=== PATIENT | female | born 1960 | race Caucasian/White ===

== ENCOUNTER 2021-07-19 01:20 | Day surgery (SDC) | payer OTHER, SELFPAY ==
[2021-07-17 08:47] VITALS: BMI 40.3
--- NOTE | 2021-07-17 09:23 | PC.NURSE ---
Report to the Outpatient Waiting Room, entrance under the green pavilion located off [facility], at time 0615 on date 07/19/21. OR Time: 0815. - You and your visitor will be asked a series of questions to screen for COVID 19 for your protection. - A mask is required within the hospital. One visitor will be allowed to accompany the patient into the hospital. Patients visitor will be instructed to remain with patient at all times or leave the building. We will allow the visitor to come back to the postoperative area when patient is ready. Preoperative COVID Testing Requirements: TO BRING COPY OF CARD No COVID Test needed if: (proof is required; if not received patient will have Rapid Test prior to entry) - Patient has received COVID Vaccine at least 14 days prior to procedure date or - Patient has positive COVID test result within last 90 days of surgery date. COVID Test needed if above criteria is not met Patients may have clear liquids (water, carbonated beverages, clear teas, apple juice) until 3 hours prior to surgery with a maximum of 20 ounces. - No food from midnight until time of surgery Take the following medications with a SIP of water the morning of surgery: LOPRESSOR, PAIN PILL (IF NEEDED) Medications to discontinue per physician: VITAMINS/SUPPLEMENTS Date to take last dose: 07/17/21 Please no make-up, nail pashto, hairspray, perfume, deodorant, or body powder the day of surgery. No jewelry (including any body piercings) or valuables the day of surgery, leave them at home. Please take a shower or bath the night before, or the morning of, surgery with an antibacterial soap. Wear comfortable, loose fitting clothing. - Jewelry must be removed prior to entering the operating room. Rings and piercings that are not removed may be cut off. - The hospital will not accept responsibility for valuables. - Please leave all valuables, including medications, at home the day of surgery. If you are going home after surgery, a licensed pile driver operator must drive you home. - NO public transportation without another adult. - We recommend that an adult stay with you for 24 hours following discharge. - We also recommend that you do not drive, make important decision, drink alcoholic beverages, or take any drugs that were not prescribed by your health care provider for at least 24 hours after your discharge time. Follow any additional instructions given to you from your surgeon. Telephone instructions given to ROSETTE WHALEN and asked if any additional questions and then verbalized understanding. Patient advised to call surgeon office or pre surgery nurse liaison [phone] if any additional questions.
--- NOTE | 2021-07-18 13:22 | P.PNAN_ITS ---
Anes - Initial Pre Proc Eval Procedure: Operation Date: 07/19/21 08:15 Proposed Procedures p Cystoscopy, Injection Bulking Agent Bulkamid - Fletcher Balderrama MD Date/Time: 07/18/21 13:22 Surgeon: Fletcher Balderrama MD Pre Op Diagnosis: intrinsic sphincter deficiency Patient Data Age: 61 Gender: F Height: 1.68 m Weight: 113.4 kg Allergies Allergy/AdvReac Type Severity Reaction Status Date / Time No Known Allergies Allergy Verified 07/19/21 06:28 Home Medications Medication Instructions Recorded Confirmed Type acetaminophen [Tylenol Arthritis] 1,300 mg PO DAILY 07/17/21 07/19/21 History atorvastatin [Lipitor] 40 mg PO HS 07/17/21 07/19/21 History celecoxib [Celebrex] 200 mg PO HS 07/17/21 07/19/21 History cranberry 500 mg PO DAILY 07/17/21 07/19/21 History diazepam [Valium] 10 mg PO HS PRN 07/17/21 07/19/21 History duloxetine [Cymbalta] 60 mg PO HS 07/17/21 07/19/21 History hydrocodone-acetaminophen [Vicodin] 1 tablet PO Q8H PRN 07/17/21 07/19/21 History metaxalone [Skelaxin] 800 mg PO HS 07/17/21 07/19/21 History metoprolol tartrate [Lopressor] 50 mg PO DAILY 07/17/21 07/19/21 History naproxen 500 mg PO HS 07/17/21 07/19/21 History omeprazole 20 mg PO HS 07/17/21 07/19/21 History Patient hx anesthesia problems: none Family hx anesthesia problems: none Results Review: All pre-operative results and documents have been reviewed as part of the pre-operative evaluation. [facility] Past Medical History Medical History (Updated 07/19/21 @ 06:47 by Kwame Alvarado DO) Anxiety Asthma Chronic, continuous use of opioids Vicodin for neck plate - rarely uses, only for breakthrough pain Depression GERD (gastroesophageal reflux disease) Hyperlipidemia Hypertension Surgical History Surgical History (Updated 07/18/21 @ 13:23 by Kwame Alvarado DO) History of Social History Social History Smoking packs per day: 1.5 Smoking cigarettes per day: 30.0 Years smoked: 48 Smoking pack-years: 72.00 Smoking status: Former smoker Tobacco type: cigarettes Smoking end date: 08/28/20 Alcohol intake: current Alcohol use details: 2/MONTH Substance use: current Substance use type: marijuana Living arrangements: with family Spiritual care concerns: No Anes - Eval Final PreProcedure Day of Procedure 07/18/21 13:22 Patient weight: morbidly obese Heart: regular rate and rhythm Lungs: clear to auscultation and normal air movement Airway: Mallampati scale class II Neurological: alert and oriented Last oral intake: >/= 8 hours ASA classification: III Emergent: no Anesthetic plan: proceed Anesthesia type and monitoring: general GIVS and standard monitoring Results Review: All pre-operative results and documents have been reviewed as part of the pre-operative evaluation. Informed Consent: The patient's anesthetic plan and its attendant risks and benefits were discussed with the patient/family/POA. Questions were solicited and answers provided to the satisfaction of the patient/family/POA.
[2021-07-19 06:13] VITALS: BP 136/76; PULSE 76; RESP 18; TEMP 36.9; O2SAT 94
[2021-07-19] MEDS: LACTATED RINGERS 1,000 ML 30 ML IV CONT (06:44)
--- NOTE | 2021-07-19 07:14 | PM.IMHP ---
H&P: HPI History of Present Illness Date/Time: 07/19/21 07:14 mixed incontinence. Here for treatment of ISD Chief Complaint: ISD Review of Systems Review of Systems: All systems reviewed & are unremarkable except as noted in HPI and below PMFSH Past Medical History Medical History Anxiety Asthma Chronic, continuous use of opioids Vicodin for neck plate - rarely uses, only for breakthrough pain Depression GERD (gastroesophageal reflux disease) Hyperlipidemia Hypertension Surgical History Surgical History History of Social History Social History Smoking packs per day: 1.5 Smoking cigarettes per day: 30.0 Years smoked: 48 Smoking pack-years: 72.00 Smoking status: Former smoker Tobacco type: cigarettes Smoking end date: 08/28/20 Alcohol intake: current Alcohol use details: 2/MONTH Substance use: current Substance use type: marijuana Living arrangements: with family Spiritual care concerns: No Meds Home Medications and Allergies Home Medications Medication Instructions Recorded Confirmed Type acetaminophen [Tylenol Arthritis] 1,300 mg PO DAILY 07/17/21 07/19/21 History atorvastatin [Lipitor] 40 mg PO HS 07/17/21 07/19/21 History celecoxib [Celebrex] 200 mg PO HS 07/17/21 07/19/21 History cranberry 500 mg PO DAILY 07/17/21 07/19/21 History diazepam [Valium] 10 mg PO HS PRN 07/17/21 07/19/21 History duloxetine [Cymbalta] 60 mg PO HS 07/17/21 07/19/21 History hydrocodone-acetaminophen [Vicodin] 1 tablet PO Q8H PRN 07/17/21 07/19/21 History metaxalone [Skelaxin] 800 mg PO HS 07/17/21 07/19/21 History metoprolol tartrate [Lopressor] 50 mg PO DAILY 07/17/21 07/19/21 History naproxen 500 mg PO HS 07/17/21 07/19/21 History omeprazole 20 mg PO HS 07/17/21 07/19/21 History Allergies Allergy/AdvReac Type Severity Reaction Status Date / Time No Known Allergies Allergy Verified 07/19/21 06:28 Vital Signs Vital Signs - 24 hr 07/19/21 06:13 Temperature 98.5 F Pulse Rate 76 Respiratory Rate 18 Blood Pressure 136/76 Pulse Oximetry 94 Exam Narrative: NAD Fixed urethra A+O x3 normal breathing Assessment and Plan Assessment and plan (1) Intrinsic sphincter deficiency (ISD): Code(s): N36.42 - Intrinsic sphincter deficiency (ISD) Status: Acute Assessment and Plan: cystoscopy, bulking agent
[2021-07-19 07:16] LABS: Add Urine Microscopic? YES; Appearance Urine Cloudy (Clear); Bacteria Urine Trace /hpf; Bilirubin Urine Negative (Negative); Blood Urine Negative (Negative); Color Urine Yellow (Yellow); Glucose Urine UA Negative (Negative); Ketones Urine Negative (Negative); Leukocyte Esterase Ur Negative LEU/UL (Negative); Mucus Urine Rare /lpf; Nitrate Urine Negative (Negative); Protein Urine 1+ mg/dL (Negative); RBC Urine 0-2 /hpf (0-2); Squamous Epithelial Cell Urine Many /hpf (Few); Urobilinogen Urine Negative mg/dL (<2.0); WBC Urine 0-3 /hpf
--- NOTE | 2021-07-19 07:16 | WPDHPUPDATE1 ---
History and Physical Update Update Date/Time: 07/19/21 07:16 History and Physical has been reviewed, including an updated exam of the patient. There are NO changes in the patient's condition. Risks, benefits, and alternatives have been discussed and questions answered. Patient agrees to proceed with procedure.
[2021-07-19] MEDS: ceFAZolin 2 GM/D5W 50 ML 2 GM/50 ML BAG IVPB (07:26)
[2021-07-19 07:32] LABS: Specific Grav Ur 1.033 (1.001-1.035)
[2021-07-19] MEDS: LIDOCAINE HCL 2% GEL UROJET 10 ML PKG MUCOUS MEM (07:38)
--- NOTE | 2021-07-19 07:44 | SUR.OPER ---
BULKAMID LOT [id number],EXP 2023-04-29 REF # [id number] TOTAL AMOUNT INJECTED PER DR BUCHANAN 1.3ML INJECTED
--- NOTE | 2021-07-19 07:47 | W.PM.PROC2 ---
Procedure Note - Detailed Date of Procedure 07/19/21 Pre-op Diagnosis intrinsic sphincter deficiency Post-op Diagnosis Same Procedure Performed Cystoscopy with suburethral injection of implant material [id number] Surgeon Fletcher Balderrama MD Anesthesia MAC Indications This is a patient with stress urinary incontinence due to intrinsic sphincter deficiency. They desires surgical correction. They understand the risk of bleeding, and infection, lack of efficacy, need for repeat procedures, obstructive voiding requiring catheterization. They agreed to proceed. She understands would not help her overactive bladder symptoms Findings Open urethra consistent with intrinsic sphincter deficiency Description of Procedure The patient was correctly identified and informed consent was obtained. They were brought to the operating room. They were given MAC anesthesia. They were placed in the dorsal lithotomy position. They were prepped and draped in a sterile fashion. A time-out performed. Uro jet lidocaine jelly was applied. Cystoscopy revealed an open urethra consistent with intrinsic sphincter deficiency. I injected the bulking agent into the urethra circumferentially 2 cm proximal to bladder neck.. I used 1-1/3 syringe total. There was good bulking effect. The bladder was left partially full. They were awakened and transferred to the PACU in stable condition. Implants Urethral bulking agent Estimated Blood Loss 1 Drains No Packing No Pathology None sent Complications No immediate complications Condition Stable Disposition PACU
[2021-07-19 07:54] VITALS: BP 115/89; PULSE 66; RESP 16; O2SAT 96
[2021-07-19 08:00] VITALS: BP 116/69; PULSE 67; RESP 18
[2021-07-19 08:30] VITALS: BP 108/82; PULSE 61; RESP 16
== END 2021-07-19 08:53 | disposition home or self-care (01) ==
PROVIDERS: PCP Preventive Medicine Obesity Medicine; Visit Provider Urology
PROC: 3E0K8GC Introduction of Other Therapeutic Substance into Genitourinary Tract, Via Natural or Artificial Opening Endoscopic (ICD-10-PCS; CPT 51715; principal; 2021-07-19 08:15)
DX: N36.42 Intrinsic sphincter deficiency (ISD) (principal); F41.9 Anxiety disorder, unspecified; J45.909 Unspecified asthma, uncomplicated; F41.8 Other specified anxiety disorders; K21.9 Gastro-esophageal reflux disease without esophagitis; E78.5 Hyperlipidemia, unspecified; I10 Essential (primary) hypertension; Z87.891 Personal history of nicotine dependence; F12.90 Cannabis use, unspecified, uncomplicated; E66.01 Morbid (severe) obesity due to excess calories; Z68.38 Body mass index [BMI] 38.0-38.9, adult
CPT/HCPCS: 51715; 81001; A9270; J0690; J2250; J2704; J3010; J7120; L8606